=== PATIENT | male | born 1960 | race African-American/Black ===

== ENCOUNTER 2016-06-24 02:56 | Inpatient (IN) | payer OTHER ==
[~2016-06-24] VITALS: Ht 167.6 cm; Wt 84.2 kg
[2016-06-24] VITALS (12 sets, daily range): BP systolic 132–152; BP diastolic 85–93; PULSE 61–110; RESP 17–20; Ht 167.6 cm; Wt 84.2 kg
[~2016-06-24 02:56] MED LIST: ACET500C5 PO; AMO500 PO; ASPI-664 PO; ATOR20TA38 PO; AZIT250T94 PO; CETI10CA PO; D-ME118S6 PO; GUAI118L94 PO; LISI10TA2 PO
[2016-06-24] MEDS ORDERED: SOD CHLORIDE 0.9% 1,000 ML IV SCH (05:40)
--- NOTE | 2016-06-24 05:47 | HP ---
Date/Time of Note Date/Time of Note DATE: 06/24/16 TIME: 05:44 Assessment/Plan VTE Prophylaxis VTE Prophylaxis Intervention: SCD's Lines/Catheters IV Catheter Type (from [email or web address] Saline Lock Assessment/Plan Assessment/Plan 56 yo male with a past medical history of ICH, CVA, and polysubstance abuse, who presents with change in mental status around 10 pm last night. 1. CVA/TIA - will admit the patient to telemetry, consult neurology, neurovascular checks, PT/OT/ST, ECHO, cardiac markers, MRI brain, carotid duplex , fall precautions, aspirin/lisinopril/statin, lipid profile 2. Polysubstance abuse - social work consult 3. Essential hypertension - lisinopril, aspirin, hydralazine prn 4. Hyperglycemia - check hgba1c 5. ICH - monitor for acute neurologic changes 6. GI ppx - pepcid 7. DVT ppx - scds answered all of his questions. as per clinical course. this history and physical took greater then 45 minutes to complete HPI/ROS Admit Date/Time Admit Date/Time Jun 24, 2016 at 04:37 Hx of Present Illness 56 yo male with a past medical history of ICH, CVA, and polysubstance abuse, who presents with change in mental status around 10 pm last night. His son came to visit his home, and noticed that around 10 pm, the father had stopped talking , became aphasic and was not moving. Subsequently 10 minutes later, the patient regained normal function and ability to speak. He denies any slurred speech or facial droop. Otherwise denies any chest pain, shortness of breath, loss of consciousness, headaches, urinary/bowel irregularities, fevers/chills, nausea/ vomiting/diarrhea/constipation, or other constitutional symptoms. Initially the patient had gone to [facility] for initial evaluation, and was transferred here for insurance purposes. [facility]: Labs: Glucose 168, Cr 1.71 +Cocaine/Meth/Amphetamines CXR: perihilar fullness CT head: moderate to prominent periventricular and subcortical hypodensity ROS 14 point review of systems completed, please refer to HPI for any positive findings PMH/Family/Social Past Medical History ICH, CVA Medical History: hypertension Past Surgical History Past Surgical Hx: no surgical history Family History Significant Family History: no pertinent family hx Social History Alcohol Use: none Smoking Status: Never smoker Drug Use: cocaine, other (Meth/Amphetamines) Exam/Review of Systems Vital Signs Vitals Vital Signs Date Time Temp Pulse Resp B/P Pulse Ox O2 Delivery O2 Flow Rate FiO2 06/24/16 05:15 97.5 79 20 138/93 96 Room Air Exam Exam Gen Desi: NAD, AAOx4 HEENT: NC/AT, PERRLA, EOMI, no pharyngeal erythema, no tonsillar exudates, no lymphadenopathy, no JVD, no carotid bruits NECK: supple, no thyromegaly THORAX: symmetrical, no obvious deformities CV: S1S2, RRR, no M/G/R Lungs: CTAB no W/C/R/R Abd: soft, NT/ND, +BS, no rebound, no guarding, neg HSM EXT: no edema, no ecchymosis, no clubbing, FROM Neuro: CN II-XII grossly intact, no focal deficits, DTR's 2+ equal and symmetrical Psych: good mentation, alert and oriented, good mood and affect Skin: C/D/I AFSHAN CARCAMO MD Jun 24, 2016 05:47
[2016-06-24] MEDS ORDERED: ONDANSETRON 4 MG INJ IV PRN (06:00)
[2016-06-24] MEDS ORDERED: morphine 2 MG INJ IV PRN (06:00)
[2016-06-24] MEDS ORDERED: ACETAMINOPHEN 325 MG TAB PO PRN (06:00)
[2016-06-24] MEDS ORDERED: DOCUSATE SODIUM 100 MG CAP PO PRN (06:00)
[2016-06-24] MEDS ORDERED: NACL 0.9% 3 ML SYG IV SCH (06:00)
[2016-06-24] MEDS ORDERED: hydrALAzine 20 MG INJ IV PRN (06:00)
[2016-06-24] MEDS ORDERED: LORAZEPAM 2 MG INJ IV PRN (06:00)
[2016-06-24] MEDS ORDERED: NITROGLYCERIN (SL) 0.4 MG TAB SL PRN (06:00)
[2016-06-24 07:16] LABS: CHOL/HDL RATIO 2.8 RATIO; MAGNESIUM 2.1 mg/dl (1.7-2.5)
[2016-06-24 07:25] LABS: CK-MB 4.03 ng/ml (0.0-2.4)
[2016-06-24 07:37] LABS: TROPONIN-I 0.638 ng/ml (0.00-0.12)
[2016-06-24 07:45] LABS: THYROID STIMULATING HORMONE 1.27 MIU/L (0.465-4.680)
[2016-06-24] MEDS ORDERED: ASPIRIN (EC) 81 MG TAB PO SCH (09:00)
[2016-06-24] MEDS ORDERED: LORATADINE 10 MG TAB PO SCH (09:00)
[2016-06-24] MEDS ORDERED: FAMOTIDINE 20 MG TAB PO SCH (09:00)
[2016-06-24] MEDS ORDERED: LISINOPRIL 10 MG TAB PO SCH (09:00)
[2016-06-24] MEDS ORDERED: NON-FORMULARY/PATIENT OWN MED (Cetirizine Hcl* (Zyrtec*) 10 MG) PO SCH (09:00)
--- NOTE | 2016-06-24 09:07 | RADRPT ---
PROCEDURE: US Carotids. CLINICAL INDICATION: bruit , TIA TECHNIQUE: Multiple sonographic of the carotid bifurcation region and vertebral arteries were obta ined utilizing blanco scale, duplex and color-flow imaging. The images were reviewed on a PACS worksta tion. COMPARISON: No prior studies are available for comparison. FINDINGS: Evaluation of the right carotid bifurcation region reveals no significant calcific atherosclerotic d isease. Evaluation of the left carotid bifurcation region reveals mild to moderate mixed soft and calcific p laque. There is antegrade flow within the vertebral arteries bilaterally. RIGHT CAROTID MEASUREMENTS: Common Carotid Utkdez37.4 (cm/sec) Internal Carotid Artery - rlbvcqug14.2 (cm/sec) Internal Carotid Artery - mid52.7 (cm/sec) Internal Carotid Artery - ugippu80.8 (cm/sec) Internal Carotid/Common Carotid0.77 LEFT CAROTID MEASUREMENTS: Common Carotid Cvcqvx79.7 (cm/sec) Internal Carotid Artery - hinxhanj98.2 (cm/sec) Internal Carotid Artery - mid45 (cm/sec) Internal Carotid Artery - egttyx89.2 (cm/sec) Internal Carotid/Common Carotid0.72 RPTAT: AA IMPRESSION: No evidence for hemodynamically significant stenosis in the bilateral internal carotid arteries - va lidated velocity measurements with angiographic measurements, velocity criteria are extrapolated fro m diameter data as defined by the Society of Radiologists in Ultrasound Consensus Conference Radiolo gy 2003; 229;340-346. This study does indirectly reference the measurement of the distal ICA diamet er as the denominator for stenosis measurement. Normal antegrade flow in the vertebral arteries bilaterally. .Mac Amaya MD, MD Date Time Electronically viewed and signed by .Mac Amaya MD, MD on 06/24/2016 09:06 .S/
[2016-06-24 12:48] LABS: CK-MB 3.66 ng/ml (0.0-2.4)
[2016-06-24 12:55] LABS: TROPONIN-I 0.385 ng/ml (0.00-0.12)
--- NOTE | 2016-06-24 14:21 | PDOCDIS ---
Discharge Instructions CONDITION Patient Condition: Good HOME CARE INSTRUCTIONS: Diet Instructions: Regular ACTIVITY: Activity Restrictions: No Restrictions FOLLOW UP/APPOINTMENTS Appointments F/U WITH YOUR PCP IN 1-2 WEEKS DEREK DRUMMOND Jun 24, 2016 14:20
[2016-06-24] MEDS ORDERED: ATOR20TA38 PO (14:22)
[2016-06-24] MEDS ORDERED: LISI10TA2 PO (14:22)
[2016-06-24] MEDS ORDERED: ASPI-664 PO (14:22)
--- NOTE | 2016-06-24 15:02 | RADRPT ---
Echocardiogram Report Patient Name: RUDY BURNS Gender: Male Date: 1960 Study Date: 24-Jun-2016 Practice Physician: Edgar Turner [facility] Location: [address] Ref. Physician: AFSHAN CARCAMO Quality: Good Procedures: Transthoracic echocardiogram with complete 2D, M-Mode, and doppler examination. Indications: Cerebrovascular Accident. 2D/M Mode Doppler Measurement Value Normal Ranges Measurement Value Normal Ranges LVIDd 2D 4.8 3.5 - 5.6 cm AV Peak [place] 1.0 m/sec LVIDs 2D 2.6 2.1 - 4.1 cm AV Peak PG 4.1 mmHg LVPWd 2D 1.1 0.6 - 1.1 cm LVOT Peak [place] 0.8 m/sec IVSd 2D 0.9 0.6 - 1.1 cm LVOT Peak PG 2.8 mmHg AoR Diam 2D 2.8 2.0 - 3.7 cm MV E Peak [place] 0.4 m/sec EDV 2D 108.7 cm3 MV A Peak [place] 0.6 m/sec ESV 2D 16.6 cm3 MV E/A 0.6 LA Dimen 2D 3.6 2.3 - 4.0 cm MV Decel Time 239 msec MV Decel [place] 2 MV E/A 0.6 TR Peak [place] 3.3 m/sec TR Peak PG 42.5 mmHg RVSP 46.0 mmHg Findings Left Ventricle: Normal left ventricular systolic function. Normal left ventricular cavity size. Mild concentric left ventricular hypertrophy. Ejection fraction is visually estimated at 55 %. Tissue Doppler/Mitral Doppler indices are consistent with impaired relaxation (Stage I diastolic dysfunction). Right Ventricle: Normal right ventricular size. Normal right ventricular systolic function. Left Atrium: The left atrium is normal in size. Right Atrium: The right atrium is normal in size. Mitral Valve: Mitral valve leaflets appear mildly thickened. Mild mitral annular calcification. Trace mitral regurgitation. Aortic Valve: Normal appearance of the aortic valve. No significant aortic stenosis or insufficiency. Tricuspid Valve: Normal appearance of the tricuspid valve. Estimated peak PA systolic pressure 50 mmHg. There is mild tricuspid regurgitation. Pulmonic Valve: Normal pulmonic valve appearance. Pericardium: Normal pericardium with no significant pericardial effusion. Aorta: Normal aortic root. IVC: Normal size and normal respiratory collapse consistent with normal right atrial pressure. Conclusions 1.Normal left ventricular systolic function. Normal left ventricular cavity size. Mild concentric left ventricular hypertrophy. Ejection fraction is visually estimated at 55 %. Tissue Doppler/Mitral Doppler indices are consistent with impaired relaxation (Stage I diastolic dysfunction). 2.Mitral valve leaflets appear mildly thickened. Mild mitral annular calcification. Trace mitral regurgitation. 3.Normal appearance of the aortic valve. No significant aortic stenosis or insufficiency. 4.Normal appearance of the tricuspid valve. Estimated peak PA systolic pressure 50 mmHg. There is mild tricuspid regurgitation. 5.Normal size and normal respiratory collapse consistent with normal right atrial pressure. Electronically Signed By: Ronald Copeland 24-Jun-2016 15:01:41 -0800 Patient Name: RUDY BURNS Study Date: 24-Jun-2016 [id number]
[2016-06-24] MEDS ORDERED: ATOR40TA68 PO (16:40)
[2016-06-24] MEDS ORDERED: ATORVASTATIN 20 MG TAB PO SCH (21:00)
--- NOTE | 2016-06-25 04:18 | DS ---
DATE OF ADMISSION: 06/24/2016 DATE OF DISCHARGE: 06/24/2016 DISCHARGE DIAGNOSES: 1. Transient ischemic attack. The patient's neurological function is now intact. Aphasia and weak ness have now resolved. Etiology could be secondary to substance abuse. 2. Polysubstance abuse. The patient's U-tox is positive for cocaine, methamphetamine. The patient has been advised to stop using. aquaculture worker consult was obtained. 3. Hypertension. The patient has been noncompliant with medications, prescribed lisinopril 4. History of cerebrovascular accident. The patient has a previous CT in the past that showed lacu akash infarcts. He also has microangiopathic changes. Brain CT at outside hospital showed no acute s troke. The patient has been noncompliant with his medications and will be discharged with aspirin a nd Lipitor. HOSPITAL COURSE: The patient is a 56-year-old male with history of CVA. The patient believes that he had an intracranial hemorrhage with CT done here in 2014 which showed only lacunar infarct anteri or limb of internal capsule, intrahepatic ischemic changes. The patient has a history of hypertensi on and possible substance abuse. The patient presents with altered mental status that began 10:00 t he night before admission. The patient's symptoms resolved. He was apparently aphasic, not moving, unresponsive. Ten minutes afterward, the patient began to regain the ability to speak. The patien t was seen by PT. He was ambulating just fine. His neurological exam was intact. [facility] His U-tox was done as [place] prior to coming to this hospital and was positive for cocaine , methamphetamines. Chest x-ray showed perihilar fullness, and CT head showed moderate to prominent periventricular and subcortical hypodensity. The patient has been noncompliant with his medication s. He was given medication 2014 including aspirin, Lipitor, and lisinopril, and he had not been dominic ing it. Of note, the patient's troponins did increase slightly to 2.6 but then came down. It was f elt to be secondary to demand ischemia from his substance abuse. He was seen by social science analyst. A1c was checked, and it was normal at 5.8. LDL was normal at 81. The patient once again was seen by P T and was doing fine, ambulating without any issues. He was felt to be stable for discharge. On da y of discharge, vitals, labs, physical exam were stable. He had no acute complaints. Questions wer e answered. He was advised to stop using illicit drugs. The patient's questions were answered. CONDITION ON DISCHARGE: Stable. DISPOSITION: To home. MEDICATIONS: The patient is to continue his home medications. He was given renewal for his aspirin and lisinopril, and he was given a prescription for Lipitor 40 mg at bedtime. FOLLOWUP: The patient is to follow up with his PCP in 1 to 2 weeks. Greater than 30 minutes was spent coordinating discharge of patient. Dictated By: DEREK DRUMMOND MD BS/NTS Conf#: [id number] DID#: [id number]
[2016-06-25] MEDS ORDERED: INFLUENZA VIRUS VACCINE 0.5 ML (DISPENSING) IM* ONE (09:00)
== END 2016-06-24 18:25 | disposition home or self-care (01) | DRG 69 ==
LOC: TEL 04:37
PROVIDERS: ADMIT Student in an Organized Health Care Education/Training Program; ATTEND Student in an Organized Health Care Education/Training Program
DX: G45.9 Transient cerebral ischemic attack, unspecified (principal); I10 Essential (primary) hypertension; F19.10 Other psychoactive substance abuse, uncomplicated; Z86.73 Personal history of transient ischemic attack (TIA), and cerebral infarction without residual deficits
CPT/HCPCS: 80061; 82550; 82553; 83036; 83735; 84443; 84484; 92610; 93306; 93880; 97162; J7030

== ENCOUNTER 2016-06-28 16:48 | Emergency (ER) | payer OTHER ==
[~2016-06-28] VITALS: Ht 157.5 cm; Wt 89.0 kg
[~2016-06-28 16:48] MED LIST changes: -ATOR20TA38 PO; +ATOR40TA68 PO
[2016-06-28 17:04] VITALS: Ht 157.5 cm; Wt 89.0 kg
[2016-06-28 17:51] LABS: URINE BLOOD (Dip) POC Negative (NEGATIVE)
--- NOTE | 2016-06-28 17:55 | ERD ---
ER Documentation Chief Complaint Date/Time DATE: 06/28/16 Chief Complaint Urinary frequency HPI The patient is a 56-year-old male who presents to the Emergency Department with complaint of urinary frequency over the past week. He notes that his symptoms are often worse at night, causing him to get up several times throughout the night with the need to urinate. However, upon attempting to urinate, he notes decreased stream, with dribbling of urine. He denies any dysuria or burning upon urination. Denies hematuria or flank pain. Denies abdominal pain. Denies fevers, chills, nausea or vomiting. Denies testicular pain or swelling. Denies any discharge. The patient notes that his last sexual encounter was almost one year ago. He denies any polyphagia or polydipsia. Denies history of diabetes. Denies excessive fluid intake, diuretic use, caffeine or alcohol use. ROS All systems reviewed and are negative except as per history of present illness. Medications Home Meds Active Scripts Tamsulosin Hcl* (Flomax*) 0.4 Mg Cap.er.24h, 0.4 MG PO QPM, #30 CAP Prov:JAYJAY YOUNG PA-C 06/28/16 Atorvastatin* (Atorvastatin*) 40 Mg Tablet, 40 MG PO QHS, #60 TAB 1 Refill Prov:DEREK DRUMMOND 06/24/16 Lisinopril* (Lisinopril*) 10 Mg Tablet, 10 MG PO DAILY, #60 TAB 1 Refill Prov:DEREK DRUMMOND 06/24/16 Aspirin* (Aspirin* EC) 81 Mg Tabec, 81 MG PO DAILY, #90 1 Refill Prov:DEREK DRUMMOND 06/24/16 Cetirizine Hcl* (Zyrtec*) 10 Mg Capsule, 10 MG PO DAILY, #30 TAB.CHEW Prov:MERY PATIÑO CENSUS CLERK 05/10/15 Guaifenesin-Codeine Phosphate* (Guaifenesin* with Codeine Liq) 120 Ml Liquid, 5 ML PO Q4H for COUGH, #60 ML Prov:MERY PATIÑO CENSUS CLERK 05/10/15 Azithromycin* (Zithromax*) 250 Mg Tablet, 250 MG PO .NIK DIRECTED, #6 TAB TAKE 500 MG (2 TABS) THE FIRST DAY THEN 250 MG (1 TAB) DAYS 2-5 Prov:MERY PATIÑOKelsey CENSUS CLERK 05/10/15 Dextromethorphan Hb-Promethazine Hcl (Promethazine DM Syrup) 180 Ml Syrup, 5 ML PO Q6H Y for COUGH, #4 OZ Prov:RENNY MADRIDBIR 01/15/15 Acetaminophen* (Tylophen*) 500 Mg Capsule, 1 CAP PO Q6H Y for PAIN AND OR ELEVATED TEMP, #20 CAP Prov:MERCYBERNY 01/15/15 Amoxicillin* (Amoxicillin*) 500 Mg Cap, 500 MG PO TID for 10 Days, CAP Prov:RENNY MADRIDBIR 01/15/15 Discontinued Scripts Atorvastatin Calcium* (Atorvastatin Calcium*) 20 Mg Tab, 20 MG PO HS, #60 Prov:DEREK DRUMMOND 11/05/14 Allergies Allergies: Coded Allergies: No Known Allergy (Unverified , 11/03/14) PMhx/Soc History of Surgery: No Anesthesia Reaction: No Hx Neurological Disorder: Yes (CVA 2007) Hx Respiratory Disorders: No Hx Cardiac Disorders: Yes (HTN) Hx Psychiatric Problems: No Hx Miscellaneous Medical Probl: Yes (pls see EMR) Hx Alcohol Use: Yes Hx Substance Use: Yes Hx Tobacco Use: No Smoking Status: Never smoker Physical Exam Vitals Vital Signs Date Time Temp Pulse Resp B/P Pulse Ox O2 Delivery O2 Flow Rate FiO2 06/28/16 18:37 97.0 65 18 142/82 99 Room Air 06/28/16 17:04 97.0 99 20 136/86 99 Physical Exam GENERAL: Well-developed, well-nourished, in no acute distress HEENT: Head is normocephalic, atraumatic. No scleral pallor or icterus. Conjunctiva pink. Moist mucous membranes. NECK: Supple. RESPIRATORY: Lungs are clear to auscultation bilaterally. Equal breath sounds. Normal expiratory effort. CARDIOVASCULAR: Regular rate and rhythm. No murmurs, rubs, or gallops. GASTROINTESTINAL: Abdomen is soft, nontender, and nondistended. No guarding, no rebound tenderness. Normal bowel sounds. No abdominal bruits. No gross peritonitis. FLANK: No CVA tenderness, no mass or swelling. BACK: No midline tenderness. No paraspinal tenderness. Spine curve normal. No deformities. EXTREMITIES: No clubbing, cyanosis, or edema. Normal skin perfusion. Moving all extremities. No focal swelling or erythema. Distal pulses are palpable, 2+ bilaterally. Capillary refill is less than 2 seconds. NEUROLOGIC: The patient is alert, awake, and oriented x 3. No focal neurologic deficits. Speech is normal. INTEGUMENT: Skin is clean, dry and intact. No rashes, lesions or petechiae present. Normal turgor. PSYCHIATRIC: Appropriate; Cooperative. Results 24 hrs Laboratory Tests Test 06/28/16 17:53 Bedside Glucose 121mg/dL Bedside Urine Blood Negative Bedside Urine Glucose (UA) Negative Bedside Urine Ketones (LAB) Trace Bedside Urine Leukocyte Esterase (L Negative Bedside Urine Nitrite (LAB) Negative Bedside Urine Protein (LAB) Trace Bedside Urine pH (LAB) 5.5 Procedures/MDM This is a 56-year-old male presenting to the Emergency Department with urinary frequency over the last week, worsening at night. He had no significant abnormalities noted on physical examination. Differential diagnosis includes, but is not limited to, cystitis, urethritis, pyelonephritis, diabetes, excess fluid intake, diuretics, caffeine, alcohol use, urinary retention, neurogenic bladder, calculi, anxiety, benign prostatic hyperplasia, urinary incontinence. Patient's blood sugar is 121. Urinalysis with no nitrites, no urine leukocyte esterase, no evidence of urinary tract infection. Patient's last sexual activity was one year ago, and therefore doubt STI. After rest, the patient reports no new complaints. Upon review and interpretation of the patient's presentation, I believe his symptoms are most consistent with urinary frequency, uncertain etiology. His symptoms may be secondary to BPH, but he will need further evaluation to make such a diagnosis. He will be given a prescription for Flomax to assist in symptoms, until he can obtain outpatient urology evaluation. At this time the patient is in stable condition and therefore he can be discharged home with strict return precautions for signs of deteriorating or worsening condition. He is advised to follow up with his primary medical provider and a urologist within 2-3 days for reevaluation and further management, or return to the ED sooner for any new or worsening symptoms. I shared my medical decision making and plan with the patient and he verbally understands and agrees with the plan for further observation and care as an outpatient. At the time of discharge all questions were answered. Departure Diagnosis: Primary Impression: Urinary frequency Condition: Stable Patient Instructions: Bph (Enlarged Prostate), Dysuria Referrals: SELINA WORLEY MD, RICHARD MD Additional Instructions: Call your primary care doctor TOMORROW for an appointment during the next 2-3 days.See the doctor sooner or return here if your condition worsens before your appointment time. JAYJAY YOUNG PA-C Jun 28, 2016 17:55
[2016-06-28] MEDS ORDERED: TAMS-14 PO (17:58)
[2016-06-28 18:37] VITALS: BP 142/82; PULSE 65; RESP 18; TEMP 97
== END 2016-06-28 18:38 | disposition home or self-care (01) ==
LOC: FTE 16:48
DX: R35.0 Frequency of micturition (principal); I10 Essential (primary) hypertension; Z86.73 Personal history of transient ischemic attack (TIA), and cerebral infarction without residual deficits; Z79.82 Long term (current) use of aspirin
CPT/HCPCS: 81003; 82962; Z7502; 99283

== ENCOUNTER 2016-11-12 14:09 | Emergency (ER) | payer OTHER ==
[~2016-11-12] VITALS: Ht 165.1 cm; Wt 110.0 kg
[~2016-11-12 14:09] MED LIST changes: +TAMS-14 PO
[2016-11-12 14:12] VITALS: Ht 165.1 cm; Wt 110.0 kg
--- NOTE | 2016-11-12 14:40 | ERD ---
ER Documentation Chief Complaint Date/Time DATE: 11/12/16 TIME: 14:34 Chief Complaint refill of htn meds. off x 1 months HPI Patient is a 56-year-old male with past medical history of hypertension who presents to the emergency department for concerns of a medication refill. Patient is requesting blood pressure medication refill at this time. Patient states he ran out of his medication 1 month ago. Patient states that he is unsure of what he is taking. Patient states he is taking "a little pill". Patient denies any chest pain, shortness breath, nausea, vomiting, left upper extremity pain, headache, blurry vision or loss consciousness. Patient is speaking in full sentences. No unilateral weakness, slurred speech or difficulty ambulating. Patient has no complaints at this time. Patient does not know the names of his blood pressure medications, does not have bottles with him currently. Patient states he goes to the pharmacy on [facility] and [address] in [facility]. ROS All systems reviewed and are negative except as per history of present illness. Medications Home Meds Active Scripts Metoprolol Tartrate* (Lopressor*) 25 Mg Tablet, 25 MG PO BID, #60 TAB Prov:FLORES ANDREW PA-C 11/12/16 Discontinued Scripts Tamsulosin Hcl* (Flomax*) 0.4 Mg Cap.er.24h, 0.4 MG PO QPM, #30 CAP Prov:JAYJAY YOUNG PA-C 06/28/16 Atorvastatin* (Atorvastatin*) 40 Mg Tablet, 40 MG PO QHS, #60 TAB 1 Refill Prov:DEREK DRUMMOND 06/24/16 Lisinopril* (Lisinopril*) 10 Mg Tablet, 10 MG PO DAILY, #60 TAB 1 Refill Prov:DEREK DRUMMOND 06/24/16 Aspirin* (Aspirin* EC) 81 Mg Tabec, 81 MG PO DAILY, #90 1 Refill Prov:DEREK DRUMMOND 06/24/16 Cetirizine Hcl* (Zyrtec*) 10 Mg Capsule, 10 MG PO DAILY, #30 TAB.CHEW Prov:MERY PATIÑO NP 05/10/15 Guaifenesin-Codeine Phosphate* (Guaifenesin* with Codeine Liq) 120 Ml Liquid, 5 ML PO Q4H for COUGH, #60 ML Prov:MERY PATIÑOKelsey SYSTEMS SOFTWARE MANAGER 05/10/15 Azithromycin* (Zithromax*) 250 Mg Tablet, 250 MG PO .ZPACK DIRECTED, #6 TAB TAKE 500 MG (2 TABS) THE FIRST DAY THEN 250 MG (1 TAB) DAYS 2-5 Prov:MERY PATIÑO. SYSTEMS SOFTWARE MANAGER 05/10/15 Dextromethorphan Hb-Promethazine Hcl (Promethazine DM Syrup) 180 Ml Syrup, 5 ML PO Q6H Y for COUGH, #4 OZ Prov:BERNY MADRID 01/15/15 Acetaminophen* (Tylophen*) 500 Mg Capsule, 1 CAP PO Q6H Y for PAIN AND OR ELEVATED TEMP, #20 CAP Prov:BERNY MADRID 01/15/15 Amoxicillin* (Amoxicillin*) 500 Mg Cap, 500 MG PO TID for 10 Days, CAP Prov:BERNY MADRID 01/15/15 Allergies Allergies: Coded Allergies: No Known Allergy (Unverified , 11/03/14) PMhx/Soc Medical and Surgical Hx: pt denies Surgical Hx History of Surgery: No Anesthesia Reaction: No Hx Neurological Disorder: Yes (CVA 2007) Hx Respiratory Disorders: No Hx Cardiac Disorders: Yes (HTN) Hx Psychiatric Problems: No Hx Miscellaneous Medical Probl: Yes (pls see EMR) Hx Alcohol Use: Yes Hx Substance Use: Yes Hx Tobacco Use: No Physical Exam Vitals Vital Signs Date Time Temp Pulse Resp B/P Pulse Ox O2 Delivery O2 Flow Rate FiO2 11/12/16 15:13 18 138/95 98 Room Air 11/12/16 14:12 98.1 86 18 144/93 99 Physical Exam GENERAL: Well-developed, well-nourished male. Appears in no acute distress. Speaking in full sentences HEAD: Normocephalic, atraumatic. EYES: Pupils are equally reactive bilaterally. EOMs grossly intact. No conjunctival erythema. ENT: Moist mucous membranes. No uvula deviation. No kissing tonsils. NECK: Supple. No meningismus. Normal range of motion of the neck. LUNG: Clear to auscultation bilaterally. No rhonchi, wheezing, rales or coarse breath sounds. HEART: Regular rate and rhythm. No murmurs, rubs or gallops. EXTREMITIES: Equal pulses bilaterally. No peripheral clubbing, cyanosis or edema. No unilateral leg swelling. NEUROLOGIC: Alert and oriented x3, cooperative. Mood and affect appropriate to situation. Cranial nerves II through XII are grossly intact. Normal speech. Motor exam: 5/5 strength in upper and lower extremities. Sensory exam: Sensation intact to light touch on all four extremities. Steady gait. No pronator drift. SKIN: Normal color. Warm and dry. No rashes or lesions. Procedures/MDM MEDICAL DECISION MAKING: Patient is a 56-year-old male who presents to the ED for concerns of blood pressure medication refill. Patient does not have his blood pressure medication bottles or know the names of his medications. Vital signs were reviewed. Patient is afebrile. Patient's blood pressure was noted to be elevated however he had no signs of hypertensive emergency or hypertensive urgency. Patient denied any complaints of chest pain, shortness breath, nausea , vomiting, diaphoresis, headache or blurry vision. formula technician was called to assist in determining the patient's blood pressure medication. formula technician contacted numerous pharmacies to determine the patient's medication. It was determined that the patient goes to [facility]. Patient is currently taking metoprolol tartrate 25 mg twice daily. At this time I will provide the patient with this prescription. Patient was advised that he will need to follow-up with his primary care physician for any further refills. At this time, patient's presentation is most consistent with medication refill. Low suspicion for CVA, hypertensive urgency or hypertensive emergency at this time. PRESCRIPTION: Metoprolol tartrate 25 mg twice daily 0 refills DISCHARGE: At this time, patient is stable for discharge and outpatient management. I have instructed the patient to follow-up with his/her primary care physician in 1-2 days. I have discussed with the patient the possibility of needing to see a specialist for further workup and imaging studies if symptoms persist. I have instructed the patient to promptly return to the ER for any new or worsening symptoms including increased pain, fever, nausea, vomiting, weakness or LOC. The patient and/or family expressed understanding of and agreement with this plan. All questions were answered. Home care instructions were provided. Patient's blood pressure was elevated (>120/80) but appears stable without evidence of hypertensive emergency, hypertensive urgency or end-organ failure. I had discussion with the patient about the risks of hypertension. I have advised the patient to follow up with his/her primary care physician for outpatient monitoring and treatment for hypertension in 2-3 days. I have instructed the patient to return to the ER for any new or worsening symptoms including chest pain, shortness of breath, headache, blurred vision, confusion, nausea, vomiting or LOC. Departure Diagnosis: Primary Impression: Encounter for medication refill Condition: Stable Patient Instructions: Taking Medicine Safely, High Blood Pressure (Hypertension ) Referrals: LIV MYERS (PCP) Additional Instructions: Call your primary care doctor TOMORROW for an appointment during the next 1-2 days.See the doctor sooner or return here if your condition worsens before your appointment time. FLORES ANDREW PA-C Nov 12, 2016 14:40
[2016-11-12] MEDS ORDERED: METO25TA4 PO ×2 (14:53→15:01)
[2016-11-12 15:13] VITALS: BP 138/95; RESP 18
== END 2016-11-12 15:13 | disposition home or self-care (01) ==
LOC: FTE 14:09
DX: Z76.0 Encounter for issue of repeat prescription (principal); I10 Essential (primary) hypertension; Z79.82 Long term (current) use of aspirin
CPT/HCPCS: 99281

== ENCOUNTER 2017-04-17 22:35 | Observation (INO) | payer OTHER ==
[~2017-04-17] VITALS: Ht 167.6 cm; Wt 90.6 kg
[~2017-04-17 22:35] MED LIST changes: -ACET500C5 PO; -AMO500 PO; -ASPI-664 PO; -ATOR40TA68 PO; -AZIT250T94 PO; -CETI10CA PO; -D-ME118S6 PO; -GUAI118L94 PO; -LISI10TA2 PO; +METO25TA4 PO; -TAMS-14 PO
[2017-04-18] VITALS (11 sets, daily range): BP systolic 125–142; BP diastolic 86–94; PULSE 47–81; RESP 18–19; Ht 167.6 cm; Wt 90.6 kg
[2017-04-18] MEDS ORDERED: NACL 0.9% 3 ML SYG IV SCH (03:30)
[2017-04-18] MEDS ORDERED: morphine 2 MG INJ IV PRN (03:30)
[2017-04-18] MEDS ORDERED: ACETAMINOPHEN 325 MG TAB PO PRN (03:30)
[2017-04-18] MEDS ORDERED: NITROGLYCERIN (SL) 0.4 MG TAB SL PRN (03:30)
[2017-04-18] MEDS ORDERED: ALBUTEROL/IPRATROPIUM (NEB) 3 ML AMP HHN PRN (03:30)
[2017-04-18] MEDS ORDERED: ONDANSETRON 4 MG INJ IV PRN (03:30)
--- NOTE | 2017-04-18 09:18 | HP ---
Date/Time of Note Date/Time of Note DATE: 04/18/17 TIME: 09:11 Assessment/Plan VTE Prophylaxis VTE Prophylaxis Intervention: heparin Assessment/Plan Assessment/Plan 1. Chest pain, rule out ACS -Continue telemetry monitoring -Supplemental oxygen, beta-shala, aspirin, statin with as needed nitro morphine -Patient had 2D echo in May of this year which showed stage I diastolic dysfunction with preserved EF of 55%. 2. CHF exacerbation -Chest x-ray from outside hospital shows pulmonary vascular congestion -will obtain a 2D echo -Will diurese 3. Presumed LIVIER: Based on labs from outside hospital which showed a creatinine of 1.5 - will repeat lab here and will go from there 4. Probable right-sided pneumonia: Again this is based on the chest x-ray from an outside hospital -will repeat chest x-ray here -IV antibiotic HPI/ROS Admit Date/Time Admit Date/Time Apr 18, 2017 at 02:24 Hx of Present Illness This is a 57-year-old male with a history of attention, CVA, polysubstance abuse who initially went to an outside hospital complaining of chest pain 2 days. Pain is slightly left-sided, described as sharp in tightness with associated shortness of breath. Denied nausea/vomiting or diaphoresis. At the outside hospital of the first troponin is negative and EKG was no ST-T wave abnormalities. Patient was transferred to [facility] for insurance reason to rule out ACS. PMH/Family/Social Past Surgical History Past Surgical Hx: no surgical history Social History Smoking Status: Never smoker Exam/Review of Systems Vital Signs Vitals Vital Signs Date Time Temp Pulse Resp B/P Pulse Ox O2 Delivery O2 Flow Rate FiO2 04/18/17 08:29 76 04/18/17 07:41 98.0 19 137/89 96 Intake and Output 04/17/17 04/17/17 04/18/17 15:00 23:00 07:00 Intake Total 350 ml Balance 350 ml Exam Constitutional: alert, oriented, well developed Head: atraumatic, normocephalic Eyes: PERRL Respiratory: clear to auscultation, normal air movement Cardiovascular: nl pulses, regular rate and rhythm Gastrointestinal: non-tender, soft Extremities: normal pulses Medications Medications Current Medications Ondansetron HCl (Zofran Inj) 4 mg Q6H PRN IV NAUSEA AND/OR VOMITING; Start at 03:30 Aspirin (Aspirin) 81 mg DAILY PO ; Start 04/18/17 at 09:00 Nitroglycerin (Nitroglycerin (Sl Tab) 0.4 Mg) 1 tab Q5M PRN SL CHEST PAIN; Start 04/18/17 at 03:30 Acetaminophen (Tylenol Tab) 650 mg Q6H PRN PO PAIN LEVEL 1-3 OR FEVER; Start 04/18/17 at 03:30 Morphine Sulfate (morphine) 2 mg Q4H PRN IV PAIN LEVEL 7-10; Start 04/18/17 at 03:30 Enoxaparin Sodium (Lovenox) 40 mg DAILY SC ; Start 04/18/17 at 09:00 Metoprolol Tartrate (Lopressor) 25 mg BID PO ; Start 04/18/17 at 09:00 SELMA DE LA CRUZ MD Apr 18, 2017 09:18
[2017-04-18] MEDS: METOPROLOL 25 MG TAB PO SCH ×2 (09:52→20:51)
[2017-04-18] MEDS: ASPIRIN 81 MG TAB PO SCH (09:52)
[2017-04-18] MEDS: ENOXAPARIN 40 MG/0.4 ML SYG SC SCH (09:53)
--- NOTE | 2017-04-18 10:04 | PN ---
Date/Time of Note Date/Time of Note DATE: 04/18/17 TIME: 10:04 Assessment/Plan VTE Prophylaxis VTE Prophylaxis Intervention: SCD's Assessment/Plan Chief Complaint/Hosp Course Assessment plan 1. Chest pain. Rule out ACS. Troponin is pending. Census Taker was consulted. Follow-up on echocardiogram. 2. CHF exacerbation. Follow-up on echocardiogram. Continue on Lasix. 3. Reported LIVIER. Follow-up on renal panel. 4. Suspect pneumonia. Continue on antibiotics for now. Disposition and plan: Census Taker follow. Labs pending. Anticipate discharge within the next 24 hours medically stable. Discussed plan of care with Dr. Patterson Problems: Subjective 24 Hr Interval Summary Free Text/Dictation denies any chest pain at this time Exam/Review of Systems Vital Signs Vitals Vital Signs Date Time Temp Pulse Resp B/P Pulse Ox O2 Delivery O2 Flow Rate FiO2 04/18/17 08:29 76 04/18/17 07:41 98.0 19 137/89 96 Intake and Output 04/17/17 04/17/17 04/18/17 15:00 23:00 07:00 Intake Total 350 ml Balance 350 ml Exam Constitutional: alert, obese, oriented Psych: nl mood/affect Head: normocephalic Eyes: nl conjunctiva Neck: non-tender, supple Respiratory: clear to auscultation, normal air movement Cardiovascular: other (regular rate) Gastrointestinal: non-tender, soft Musculoskeletal: nl extremities to inspection Neurological: TRAFFIC SUPERINTENDENT II-XII intact, nl mental status, nl speech Skin: nl turgor Medications Medications Current Medications Ondansetron HCl (Zofran Inj) 4 mg Q6H PRN IV NAUSEA AND/OR VOMITING; Start at 03:30 Aspirin (Aspirin) 81 mg DAILY PO Last administered on 04/18/17t 09:52; Admin Dose 81 MG; Start 04/18/17 at 09:00 Nitroglycerin (Nitroglycerin (Sl Tab) 0.4 Mg) 1 tab Q5M PRN SL CHEST PAIN; Start 04/18/17 at 03:30 Acetaminophen (Tylenol Tab) 650 mg Q6H PRN PO PAIN LEVEL 1-3 OR FEVER; Start 04/18/17 at 03:30 Morphine Sulfate (morphine) 2 mg Q4H PRN IV PAIN LEVEL 7-10; Start 04/18/17 at 03:30 Enoxaparin Sodium (Lovenox) 40 mg DAILY SC Last administered on 04/18/17 09: 53; Admin Dose 40 MG; Start 04/18/17 at 09:00 Metoprolol Tartrate 25 mg 25 mg BID PO Last administered on 04/18/17 09:52; Admin Dose 25 MG; Start 04/18/17 at 09:00 Levofloxacin/ Dextrose (Levaquin 500mg/ D5W 100 ml (Pmx)) 100 ml @ 100 mls/hr Q24H IVPB ; Start 04/18/17 at 09:30 Furosemide (Lasix) 20 mg DAILY IV ; Start 04/18/17 at 09:30 LELE COHEN Apr 18, 2017 10:04
[2017-04-18] MEDS: FUROSEMIDE 20 MG INJ IV SCH (10:09)
[2017-04-18] MEDS: LEVOFLOXACIN 500MG/D5W (PMX) 100 ML IVPB SCH (10:11)
[2017-04-18 10:43] LABS: BASOPHILS % 0.7 % (0.0-2.0); EOSINOPHILS # 0.2 10^3/ul (0.0-0.5); EOSINOPHILS % 3.3 % (0.0-7.0); HEMATOCRIT 49.2 % (42.0-52.0); HEMOGLOBIN 16.2 g/dl (14.0-18.0); LYMPHOCYTES # 1.6 10^3/ul (0.8-2.9); MEAN CORPUSCULAR HEMOGLOBIN 28.5 pg (29.0-33.0); MEAN CORPUSCULAR HGB CONC 32.9 g/dl (32.0-37.0); MEAN CORPUSCULAR VOLUME 86.6 fl (82.0-101.0); MEAN PLATELET VOLUME 10.7 fl (7.4-10.4); MONOCYTE # 0.3 10^3/ul (0.3-0.9); MONOCYTES % 7.3 % (0.0-11.0); NEUTROPHIL # 2.3 10^3/ul (1.6-7.5); NEUTROPHILS % 51.6 % (39.0-77.0); PLATELET COUNT 306 10^3/UL (140-415); RED BLOOD COUNT 5.68 10^6/ul (4.70-6.10); RED CELL DISTRIBUTION WIDTH 14.3 % (11.5-14.5); WHITE BLOOD COUNT 4.5 10^3/ul (4.8-10.8)
[2017-04-18 11:04] LABS: ALANINE AMINOTRANSFERASE 44 IU/L (13-69); ALBUMIN 3.7 g/dl (3.3-4.9); ALBUMIN/GLOBULIN RATIO 0.92; ALKALINE PHOSPHATASE 87 IU/L (42-121); ANION GAP 14 (8-16); ASPARTATE AMINO TRANSFERASE 32 IU/L (15-46); BILIRUBIN,INDIRECT 0.5 mg/dl (0-1.1); BILIRUBIN,TOTAL 0.5 mg/dl (0.2-1.3); BLOOD UREA NITROGEN 18 mg/dl (7-20); CALCIUM 9.1 mg/dl (8.4-10.2); CARBON DIOXIDE 25 mmol/L (21-31); CHLORIDE 103 mmol/L (97-110); CHOL/HDL RATIO 4.7 RATIO; CHOLESTEROL 205 mg/dl (100-200); CREATINE KINASE 98 IU/L (23-200); CREATININE 1.37 mg/dl (0.61-1.24); GLUCOSE 149 mg/dl (70-220); HDL CHOLESTEROL 43 mg/dl (28-71); POTASSIUM 4.4 mmol/L (3.5-5.1); SODIUM 138 mmol/L (135-144); TOTAL PROTEIN 7.7 g/dl (6.1-8.1); TRIGLYCERIDES 136 mg/dl (0-149)
--- NOTE | 2017-04-18 11:07 | CONS ---
Date/Time of Note Date/Time of Note DATE: 04/18/17 TIME: 11:02 Assessment/Plan Assessment/Plan Additional Assessment/Plan Epigastric and chest pain, resolved Hypertension History of methamphetamine use Elevated amylase -Patient with epigastric and chest discomfort which happened approximately 2-3 days ago which was sharp in nature and nonexertional. Laboratory studies an outside facility with elevated amylase of 248, troponins were negative yesterday at 6:09 PM as well as d-dimer. Symptoms seem atypical for cardiac etiology. Will check serial cardiac enzymes, echocardiogram has been done and images need to be reviewed. Consultation Date/Type/Reason Admit Date/Time Apr 18, 2017 at 02:24 Type of Consultation: cv Reason for Consultation Chest pain Hx of Present Illness This is a 57-year-old male with past medical history of hypertension, methamphetamine and marijuana use who presents with epigastric and mid chest pain. Pain was approximately 2-3 days ago and is since resolved. Patient told his sister that he had chest pain and stomach pain and he was told to come to the emergency room. As mentioned, patient has not had pain in the past 2-3 days. His pain was sharp like and burning like in sensation. Denies any exertional chest pain or shortness of breath. He does complain of a cough which has been productive for the past 2 weeks and getting better. Denies any dizziness or lightheadedness. He does admit to methamphetamine use and is not sure when the last time he is used in the past month. 12 point review of systems was performed with all pertinent positives and negatives mentioned above and all else is negative Past Medical History Medical History: hypertension Past Surgical History Past Surgical Hx: no surgical history Family History Significant Family History: no pertinent family hx Social History Drug Use: marijuana, other (Methamphetamine) Exam/Review of Systems Vital Signs Vitals Vital Signs Date Time Temp Pulse Resp B/P Pulse Ox O2 Delivery O2 Flow Rate FiO2 04/18/17 08:29 76 04/18/17 07:41 98.0 19 137/89 96 Intake and Output 04/17/17 04/17/17 04/18/17 15:00 23:00 07:00 Intake Total 350 ml Balance 350 ml Exam No apparent distress Constitutional: alert, oriented, well developed Head: normocephalic Respiratory: clear to auscultation, normal air movement Cardiovascular: other (S1-S2 heard), regular rate and rhythm Gastrointestinal: bowel sounds, other (Mild discomfort with epigastric palpation), soft Extremities: other (No edema) Results Result Diagram: 04/18/17 1008 Results 24 hrs Laboratory Tests Test 04/18/17 10:08 White Blood Count 4.5 L Red Blood Count 5.68 Hemoglobin 16.2 Hematocrit 49.2 Mean Corpuscular Volume 86.6 Mean Corpuscular Hemoglobin 28.5 L Mean Corpuscular Hemoglobin Concent 32.9 Red Cell Distribution Width 14.3 Platelet Count 306 Mean Platelet Volume 10.7 #H Neutrophils % 51.6 Lymphocytes % 36.0 Monocytes % 7.3 Eosinophils % 3.3 Basophils % 0.7 Nucleated Red Blood Cells % 0.0 Neutrophils # 2.3 Lymphocytes # 1.6 Monocytes # 0.3 Eosinophils # 0.2 Basophils # 0.0 Nucleated Red Blood Cells # 0.0 Medications Medications Current Medications Ondansetron HCl (Zofran Inj) 4 mg Q6H PRN IV NAUSEA AND/OR VOMITING; Start at 03:30 Aspirin (Aspirin) 81 mg DAILY PO Last administered on 04/18/17 09:52; Admin Dose 81 MG; Start 04/18/17 at 09:00 Nitroglycerin (Nitroglycerin (Sl Tab) 0.4 Mg) 1 tab Q5M PRN SL CHEST PAIN; Start 04/18/17 at 03:30 Acetaminophen (Tylenol Tab) 650 mg Q6H PRN PO PAIN LEVEL 1-3 OR FEVER; Start 04/18/17 at 03:30 Morphine Sulfate (morphine) 2 mg Q4H PRN IV PAIN LEVEL 7-10; Start 04/18/17 at 03:30 Enoxaparin Sodium (Lovenox) 40 mg DAILY SC Last administered on 04/18/17 09: 53; Admin Dose 40 MG; Start 04/18/17 at 09:00 Metoprolol Tartrate 25 mg 25 mg BID PO Last administered on 04/18/17 09:52; Admin Dose 25 MG; Start 04/18/17 at 09:00 Levofloxacin/ Dextrose (Levaquin 500mg/ D5W 100 ml (Pmx)) 100 ml @ 100 mls/hr Q24H IVPB Last administered on 04/18/17 10:11; Admin Dose 100 MLS/HR; Start 04/18/17 at 09:30 Furosemide (Lasix) 20 mg DAILY IV Last administered on 04/18/17t 10:09; Admin Dose 20 MG; Start 04/18/17 at 09:30 Procedures Procedures ECG demonstrates sinus rhythm at 75 bpm, QRS 92 ms, no significant ischemic ST abnormalities Carlos Taylor DO Apr 18, 2017 11:07
[2017-04-18 11:16] LABS: CK-MB 1.41 ng/ml (0.0-2.4); TROPONIN-I < 0.012 ng/ml (0.00-0.12)
[2017-04-18 11:40] LABS: CREATINE KINASE 111 IU/L (23-200)
[2017-04-18 11:54] LABS: CK-MB 1.75 ng/ml (0.0-2.4); TROPONIN-I < 0.012 ng/ml (0.00-0.12)
--- NOTE | 2017-04-18 13:39 | RADRPT ---
Echocardiogram Report Patient Name: RUDY BURNS Gender: Male Date: 1960 Study Date: 18-Apr-2017 Termite Exterminator: ELMA Location: [id number] Ref. Physician: SELMA DE LA CRUZ Quality: Good Procedures: Transthoracic echocardiogram with complete 2D, M-Mode, and doppler examination. Indications: Chest Pain. 2D/M Mode Doppler Measurement Value Normal Ranges Measurement Value Normal Ranges AoR Diam MM 3.1 cm GILBERTO Vmax 2.6 cm2 ACS MM 1.9 cm GILBERTO VTI 2.6 cm2 LA/Ao MM 1.2 AV Mean Quinton 0.9 m/sec LA Dimen MM 3.6 cm AV Mean PG 3.8 mmHg LVIDd 2D 4.8 3.5 - 5.6 cm AV Peak Quinton 1.3 m/sec LVIDs 2D 3.1 2.1 - 4.1 cm AV Peak PG 6.6 mmHg LVPWd 2D 1.1 0.6 - 1.1 cm AV VTI 22.7 cm IVSd 2D 1.1 0.6 - 1.1 cm LVOT Peak [place]inton 1.0 m/sec EDV 2D 105.8 cm3 LVOT Peak PG 4.3 mmHg ESV 2D 28.7 cm3 MV E Peak [place]inton 0.7 m/sec EF 2D 65.0 50.0 - 65.0 % MV A Peak [place] 0.9 m/sec LVOT Diam 2.0 cm MV E/A 0.7 MV Decel Time 218 msec MV Decel Titus 3 MV E/A 0.7 TR Peak Quinton 2.6 m/sec TR Peak PG 26.6 mmHg RVSP 30.0 mmHg RA Pressure 3.0 Findings Left Ventricle: Normal left ventricular systolic function. Normal left ventricular cavity size. Normal left ventricular wall thickness. Ejection fraction is visually estimated at 65 %. Tissue Doppler/Mitral Doppler indices are consistent with impaired relaxation (Stage I diastolic dysfunction). Right Ventricle: Normal right ventricular size. Normal right ventricular systolic function. Left Atrium: The left atrium is normal in size. Right Atrium: The right atrium is normal in size. Mitral Valve: Normal appearance and function of the mitral valve with trace physiologic regurgitation. Aortic Valve: Normal appearance of the aortic valve. No significant aortic stenosis or insufficiency. Tricuspid Valve: Normal appearance and function of the tricuspid valve with trace physiologic regurgitation. Estimated peak PA systolic pressure 30 mmHg. Pulmonic Valve: Normal pulmonic valve appearance. Pericardium: Normal pericardium with no significant pericardial effusion. Aorta: Normal aortic root. IVC: Normal size and normal respiratory collapse consistent with normal right atrial pressure. Conclusions 1.Normal left ventricular systolic function. Normal left ventricular cavity size. Normal left ventricular wall thickness. Ejection fraction is visually estimated at 65 %. Tissue Doppler/Mitral Doppler indices are consistent with impaired relaxation (Stage I diastolic dysfunction). 2.Normal right ventricular size. Normal right ventricular systolic function. 3.The left atrium is normal in size. 4.The right atrium is normal in size. 5.No significant valvular stenosis or regurgitation seen. 6.Normal pericardium with no significant pericardial effusion. Electronically Signed By: Carlos Taylor 18-Apr-2017 13:38:44 -0800 Patient Name: RUDY BURNS Study Date: 18-Apr-[id number]
--- NOTE | 2017-04-18 15:55 | PDOCDIS ---
Discharge Instructions DIAGNOSIS Discharge Diagnosis 1. Chest pain. atypical 2. CHF exacerbation. 3. Reported LIVIER. 4. Suspect pneumonia. Continue on antibiotics for now. CONDITION Patient Condition: Stable FOLLOW UP/APPOINTMENTS Follow-up Plan 1. Follow up with your primary care provider in one week LELE COHEN Apr 18, 2017 15:55
[2017-04-18] MEDS ORDERED: SOD CHLORIDE 0.9% 1,000 ML IV ONE (16:00)
--- NOTE | 2017-04-18 16:09 | RADRPT ---
Vent Rate: 75 bpm RR Interval: 0 msec [place] Interval: 182 msec QRS Duration: 92 msec QT Interval: 384 msec QTC Interval: 428 msec P-R-T [place]: 46 - 73 - 52 degrees Normal sinus rhythm Normal ECG Electronically Signed By: Margarito Holland [id number]
[2017-04-18 23:44] LABS: BARBITURATES Negative (NEGATIVE); BENZODIAZEPINES Negative (NEGATIVE); CANNABINOIDS Negative (NEGATIVE); COCAINE Negative (NEGATIVE); OPIATES Negative (NEGATIVE)
[2017-04-19] VITALS (9 sets, daily range): BP systolic 114–166; BP diastolic 68–112; PULSE 66–73; RESP 18–19
[2017-04-19 07:58] LABS: BASOPHILS % 0.6 % (0.0-2.0); EOSINOPHILS # 0.2 10^3/ul (0.0-0.5); EOSINOPHILS % 3.2 % (0.0-7.0); HEMATOCRIT 49.8 % (42.0-52.0); HEMOGLOBIN 16.6 g/dl (14.0-18.0); LYMPHOCYTES % 41.6 % (15.0-51.0); MEAN CORPUSCULAR HEMOGLOBIN 28.9 pg (29.0-33.0); MEAN CORPUSCULAR HGB CONC 33.3 g/dl (32.0-37.0); MEAN CORPUSCULAR VOLUME 86.6 fl (82.0-101.0); MEAN PLATELET VOLUME 10.4 fl (7.4-10.4); MONOCYTE # 0.6 10^3/ul (0.3-0.9); MONOCYTES % 12.7 % (0.0-11.0); NEUTROPHILS % 41.1 % (39.0-77.0); PLATELET COUNT 274 10^3/UL (140-415); RED BLOOD COUNT 5.75 10^6/ul (4.70-6.10); RED CELL DISTRIBUTION WIDTH 14.1 % (11.5-14.5); WHITE BLOOD COUNT 4.7 10^3/ul (4.8-10.8)
[2017-04-19 08:26] LABS: CALCIUM 8.9 mg/dl (8.4-10.2); CREATININE 1.31 mg/dl (0.61-1.24); MAGNESIUM 2.1 mg/dl (1.7-2.5); PHOSPHORUS 3.8 mg/dl (2.5-4.9); POTASSIUM 4.4 mmol/L (3.5-5.1)
[2017-04-19] MEDS ORDERED: NITR0.4T32 SL (09:15)
[2017-04-19] MEDS ORDERED: LEVO500T72 PO (09:15)
[2017-04-19] MEDS ORDERED: FAMO20TA18 PO (09:15)
[2017-04-19] MEDS ORDERED: ASPI81TA3 PO (09:15)
[2017-04-19] MEDS ORDERED: METO25TA4 PO (09:15)
[2017-04-19] MEDS ORDERED: TAMS-14 PO (09:31)
[2017-04-19] MEDS: METOPROLOL 25 MG TAB PO SCH (09:55)
[2017-04-19] MEDS: ASPIRIN 81 MG TAB PO SCH (09:55)
[2017-04-19] MEDS: FUROSEMIDE 20 MG INJ IV SCH (09:56)
[2017-04-19] MEDS: LEVOFLOXACIN 500MG/D5W (PMX) 100 ML IVPB SCH (09:56)
[2017-04-19] MEDS: ENOXAPARIN 40 MG/0.4 ML SYG SC SCH (09:58)
== END 2017-04-19 13:49 | disposition home or self-care (01) ==
LOC: INTOOBSV 04-18 02:24 → MS4 04-18 02:24
PROVIDERS: ADMIT Internal Medicine; ATTEND Internal Medicine
DX: R07.9 Chest pain, unspecified (principal); R10.13 Epigastric pain; I50.9 Heart failure, unspecified; I10 Essential (primary) hypertension
CPT/HCPCS: 80048; 80053; 80061; 80307; 82550; 82553; 83036; 83690; 83735; 84100; 84443; 84484; 85025; 87081; 93005; 93306; G0378; J1940; J1650; J1956; J7030